=== PATIENT | female | born 1965 | race African-American/Black ===

== ENCOUNTER 2025-07-17 16:27 | Emergency (ER) | payer OTHER ==
[~2025-07-17] VITALS: Ht 167.6 cm; Wt 55.8 kg
[2025-07-17 16:44] VITALS: BP 138/97
[2025-07-17] MEDS ORDERED: ONDA4TAB11 PO (19:41)
[2025-07-17] MEDS ORDERED: HYDR-4209 PO (19:41)
[2025-07-17 20:08] VITALS: BP 130/95; O2SAT 99
== END 2025-07-17 19:57 | disposition home or self-care (01) ==
LOC: ER 16:55
DX: M79.602 Pain in left arm (principal); E11.9 Type 2 diabetes mellitus without complications; W01.0XXA Fall on same level from slipping, tripping and stumbling without subsequent striking against object, initial encounter; Y93.89 Activity, other specified; Y92.89 Other specified places as the place of occurrence of the external cause; Y99.9 Unspecified external cause status
CPT/HCPCS: 73060; 73090; 73110; 73130; A4606; A4663